=== PATIENT | male | born 1995 | race Two or more races ===

== ENCOUNTER 2020-03-15 11:02 | Outpatient (REF) | payer OTHER, SELFPAY | END 2020-03-15 11:03 | disposition home or self-care (01) | LOC: HO.LAB 11:02 | PROVIDERS: Visit Provider Internal Medicine | DX: Z20.828 Contact with and (suspected) exposure to other viral communicable diseases (principal) | CPT/HCPCS: C9803; U0003 ==

== ENCOUNTER 2020-04-09 07:45 | Outpatient (REF) | payer OTHER, SELFPAY | END 2020-04-09 07:46 | disposition home or self-care (01) | LOC: HO.LAB 07:45 | PROVIDERS: Visit Provider Internal Medicine | DX: Z20.822 Contact with and (suspected) exposure to COVID-19 (principal) | CPT/HCPCS: 36415; C9803; U0003 ==

== ENCOUNTER 2020-07-04 14:22 | Outpatient (REF) | payer OTHER, SELFPAY ==
[2020-07-04 15:36] LABS: COVID-19 Test Negative (Negative)
== END 2020-07-04 14:23 | disposition home or self-care (01) ==
LOC: HO.LAB 14:22
PROVIDERS: Visit Provider Internal Medicine
DX: Z20.822 Contact with and (suspected) exposure to COVID-19 (principal)
CPT/HCPCS: 36415; 87635; C9803

== ENCOUNTER 2020-08-05 13:59 | Outpatient (REF) | payer OTHER, SELFPAY ==
[2020-08-05 14:18] LABS: COVID-19 Test Negative (Negative)
== END 2020-08-05 14:00 | disposition home or self-care (01) ==
LOC: HO.LAB 13:59
PROVIDERS: Visit Provider Internal Medicine
DX: Z20.822 Contact with and (suspected) exposure to COVID-19 (principal)
CPT/HCPCS: 36415; 87635; C9803

== ENCOUNTER 2021-08-03 09:16 | Outpatient (REF) | payer OTHER, SELFPAY ==
[2021-08-03 10:04] LABS: COVID-19 Test Positive (Negative)
== END 2021-08-03 09:17 | disposition home or self-care (01) ==
LOC: HO.LAB 09:16
PROVIDERS: Visit Provider Internal Medicine
DX: Z20.822 Contact with and (suspected) exposure to COVID-19 (principal)
CPT/HCPCS: 87635; C9803

== ENCOUNTER 2021-08-12 15:24 | Outpatient (REF) | payer OTHER, SELFPAY ==
[2021-08-12 16:05] LABS: COVID-19 Test Negative (Negative)
== END 2021-08-12 15:25 | disposition home or self-care (01) ==
LOC: HO.LAB 15:24
PROVIDERS: Visit Provider Internal Medicine
DX: Z20.822 Contact with and (suspected) exposure to COVID-19 (principal)
CPT/HCPCS: 87635; C9803

== ENCOUNTER 2022-01-05 18:32 | Emergency (ER) | payer OTHER, SELFPAY ==
[2022-01-05 18:58] VITALS: BP 133/87; PULSE 82; RESP 18; TEMP 36.5; O2SAT 99; BMI 35.1
--- NOTE | 2022-01-05 22:54 | PC.NURSE ---
Pt. reports fevers at home - appx. 101.0F
[2022-01-05 22:55] VITALS: BP 138/92; PULSE 95; RESP 18; TEMP 37.2; O2SAT 100
--- NOTE | 2022-01-05 22:57 | PC.NURSE ---
Pt. also reporting decreased appetite, as well as numbness and tingling to entire left leg since onset of abscess
--- NOTE | 2022-01-05 23:07 | ED.SKABFB ---
HPI - Skin/Abscess/Foreign Bdy General Chief complaint: Skin/Abscess/Foreign Body Stated complaint: L Knee Abscess Time Seen by Provider: 01/05/22 22:54 Source: patient Mode of arrival: ambulatory Limitations: no limitations History of Present Illness HPI narrative: This is a 26-year-old male no significant medical history presenting to the emergency department with pain right below the left knee cap x4 days. Patient tells me that 2 days ago he started noting that there is fluid draining from the site, after he picked at the area. He tells me there is a small cyst. He tells me he went to urgent care because he is having pain when he touches that area and they told him to come into the emergency department because he had an abscess right below his knee. Patient tells me he is able to move his knee without difficulties, it is painful when he touches the area. Patient is not a diabetic. Patient reports he feels some numbness and tingling around the area intermittently however not at this time. Denies fevers, chills, chest pain, shortness of breath, nausea, vomiting, abdominal pain. Related Data Previous Rx's Medication Instructions Recorded cephalexin 500 mg tablet 500 mg PO Q6H 10 days #40 tabs 01/05/22 Allergies Allergy/AdvReac Type Severity Reaction Status Date / Time No Known Allergies Allergy Unverified 11/29/19 18:45 [No Known Allergies*] Review of Systems Review of Systems: Constitutional : No Weight loss, No Fever, No Chills, No Fatigue, No Malaise ENT/Mouth : No sore throat, No Rhinorrhea Eyes: No Eye Pain, No Swelling, No Redness Cardiovascular : No Chest Pain, No SOB, No Dyspnea on Exertion, No Orthopnea, No Edema, No Palpitations Respiratory : No Cough, No Sputum, No Wheezing Gastrointestinal : No Nausea, No Vomiting, No Diarrhea, No Constipation, No abdominal Pain, No Hematochezia, No Melena Genitourinary : No Dysuria, No Urinary Frequency, No Hematuria, Musculoskeletal : No joint pain, No Myalgias, No Joint Swelling Skin : No Skin Lesions, + rash Neuro : No Weakness, No Numbness, No Dizziness, No Headache Psych : No Anxiety/Panic, No Depression All other systems reviewed and are negative Yes all other systems are reviewed and are negative [facility] Past Medical History Attestation statement: The following information was validated with the patient. Source: old records reviewed and nursing notes reviewed Social History Social History Alcohol intake: never Patient Tobacco Use Status: Never used Tobacco Use of substances other than those prescribed or required for medical reasons: No Physical Exam Vital Signs: Vital Signs: Last Vital Signs Temp 98.9 F 01/05/22 22:55 Pulse 95 01/05/22 22:55 Resp 18 01/05/22 22:55 BP 138/92 H 01/05/22 22:55 Pulse Ox 100 01/05/22 22:55 O2 Del Method 01/05/22 22:55 BMI result Body Mass Index 35.1 Vital signs stable Appearance: Alert.? Oriented X3.? No acute distress.? Head: Normocephalic, atraumatic, no step-offs or deformities Eyes: Pupils equal, round and reactive to light.? CVS: Normal heart rate and rhythm.? Pulses normal.? Respiratory: No respiratory distress.? Breath sounds normal.? Abdomen: Soft and nontender.? Skin: Skin warm and dry.? Normal skin color.? Normal skin turgor.? Extremities: No lower extremity edema.? No calf ttp. 5/5 strength to bilateral upper and lower extremities 2+ dorsalis pedis, posterior tibialis, anterior tibialis pulses equal bilateral. There is a small area of mild erythema just below the left knee with no fluctuance, it does appear as though there may have been a small abscess that has already drained however no evident abscesses at this time. Bilateral knees with full range of motion without difficulties. Patient ambulating with steady gait, normal coordination. Neuro: Oriented X 3.? No motor deficit.? No sensory deficit. CN 2-12 intact Course Reevaluation(s) Reevaluation #1: CBC within normal limits. Chemistry with no acute electrolyte abnormalities requiring intervention. Knee xray pending. Again unlikely septic joint. No signs of abcess. Time: 23:42 Reevaluation #2: did a bedside ultrasound showing cobblestoning which is consistent with cellulitis. No signs of abscess formation. This time patient will be discharged home on Keflex. Now tells me that he was discharged home from Urgent Care on doxycycline which he has taken a few days of. No need for x-ray at this time, unlikely septic joint or osteomyelitis. Comfortable discharge home educated on worrisome signs and symptoms and when to return. Time: 23:54 MDM - Skin/Abscess/Foreign Bdy MDM Narrative Medical decision making narrative: 2300 26-year-old male presents with pain below the left knee and overlying skin redness, swelling. Did tells me this started as a small cyst which she popped 2 days ago. This has been going on for total of 5 days. Went to urgent care and was told to come in for evaluation. History and physical examination with slight erythema, warmth below the left knee consistent with cellulitis. Full range of motion to bilateral knees. Neurovascularly intact to bilateral lower extremities. Likely localized cellulitis, no signs of erysipelas, no signs of septic joint or osteomyelitis. Plan at this time is to obtain an x-ray. Medical Records Attestation: I reviewed the patient's medical records. Lab Data Attestation: I reviewed the patient's lab results. Result diagrams: 01/05/22 23:08 01/05/22 23:08 Labs: Lab Results 01/05/22 01/05/22 01/05/22 Range/Units 23:08 23:08 23:08 WBC 8.4 (4.8-10.8) X10*3/uL RBC 5.67 (4.60-5.80) X10*6/uL Hgb 16.9 (14.0-18.0) g/dl Hct 50.0 (42.0-52.0) % MCV 88.2 (80.0-98.0) fL MCH 29.8 (27.0-33.0) pg MCHC 33.8 (31.0-36.0) g/dl RDW 12.4 (11.0-16.0) % Plt Count 279 (160-400) X10*3/uL MPV 10.9 (9.4-12.4) fL Immature Gran % (Auto) 0.2 (0.0-0.4) % Neut % (Auto) 63.6 (45-73) % Lymph % (Auto) 27.2 (20-40) % [place] % (Auto) 7.4 (2-11) % Eos % (Auto) 1.0 (0-4) % Baso % (Auto) 0.6 (0-2) % Lymph # (Auto) 2.3 (1.2-4.9) X10*3/uL [place] # (Auto) 0.6 (0.1-1.2) X10*3/uL Eos # (Auto) 0.1 (0.0-0.4) X10*3/uL Baso # (Auto) 0.1 (0.0-0.2) X10*3/uL Abs Immat Gran (auto) 0.02 (0.00-0.03) X10*3/uL Absolute Neuts (auto) 5.4 (2.0-8.3) x10*3/uL Absolute Nucleated RBC 0.000 (0.0-0.012) X10*3/uL Nucleated RBC % (auto) 0.0 (0.0-0.2) /100WBC Sodium 142 (135-145) mmol/L Potassium 4.4 (3.3-5.1) mmol/L Chloride 103 (96-108) mmol/L Carbon Dioxide 26 (22-29) mmol/L Anion Gap 17 (12-20) BUN 14 (9-16) mg/dL Creatinine 0.90 (0.5-1.4) mg/dL Estim Creat Clear Calc 153.8 Estimated GFR > 60 Random Glucose 88 (60-115) mg/dL Lactic Acid 1.1 (0.5-2.0) mmol/L Calcium 10.3 H (8.4-10.2) mg/dL Total Bilirubin 0.8 (0.0-1.0) mg/dL AST 37 (5-37) U/L ALT 89 H (0-40) U/L Alkaline Phosphatase 90 (39-117) U/L Total Protein 8.5 H (6.5-8.0) g/dL Albumin 5.0 (3.5-5.0) g/dL Discharge Plan Discharge Clinical Impression: Cellulitis Patient Disposition: Home, Self-Care Instructions: Cellulitis (ED), Warm Compress or Soak (ED) Additional Instructions: Take your medications as prescribed. If you were prescribed antibiotics today, it is important that you take your medication to their entirety, do not skip any doses, do not finish them early. Follow-up with your primary care provider this week. Return to the emergency department with new or worsening symptoms. Worsening pain, swelling, inability to move me, fevers, chills, numbness or tingling Please do not going to any hot tubs, bathtubs, lakes, pickens, pulls are any areas with stagnant water. In case of emergency call 911 Prescriptions: New cephalexin 500 mg tablet 500 mg PO Q6H 10 Days Qty: 40 0RF Referrals: Physician,Unknown J [Primary Care Provider] - 2 days Stand Alone Forms: Work/School Release
[2022-01-05 23:14] LABS: MANUAL DIFF FLAG NO
[2022-01-05 23:15] LABS: Basophils Absolute Auto 0.1 X10*3/uL (0.0-0.2); Basophils Percent Auto 0.6 % (0-2); Eosinophils Absolute Auto 0.1 X10*3/uL (0.0-0.4); Hemoglobin 16.9 g/dl (14.0-18.0); Imm Gran Abs Auto 0.02 X10*3/uL (0.00-0.03); Imm Gran Pct Auto 0.2 % (0.0-0.4); Lymphocytes Absolute Auto 2.3 X10*3/uL (1.2-4.9); Lymphocytes Percent Auto 27.2 % (20-40); Mean Corpuscular HGB Conc 33.8 g/dl (31.0-36.0); Mean Corpuscular Hemoglobin 29.8 pg (27.0-33.0); Mean Corpuscular Volume 88.2 fL (80.0-98.0); Mean Platelet Volume 10.9 fL (9.4-12.4); Monocytes Absolute Auto 0.6 X10*3/uL (0.1-1.2); Monocytes Percent Auto 7.4 % (2-11); Neutrophils Absolute Auto 5.4 x10*3/uL (2.0-8.3); Neutrophils Percent Auto 63.6 % (45-73); Platelet Count 279 X10*3/uL (160-400); Red Blood Count 5.67 X10*6/uL (4.60-5.80); Red Cell Distribution Width 12.4 % (11.0-16.0); White Blood Count 8.4 X10*3/uL (4.8-10.8)
[2022-01-05 23:27] LABS: Lactic Acid 1.1 mmol/L (0.5-2.0)
[2022-01-05 23:40] LABS: Alanine Aminotransferase 89 U/L (0-40); Alkaline Phosphatase 90 U/L (39-117); Anion Gap 17 (12-20); Aspartate Amino Transferase 37 U/L (5-37); Bilirubin Total 0.8 mg/dL (0.0-1.0); Blood Urea Nitrogen 14 mg/dL (9-16); Calcium 10.3 mg/dL (8.4-10.2); Carbon Dioxide 26 mmol/L (22-29); Chloride 103 mmol/L (96-108); Creatinine Clr Calc Pharmacy 153.8; Estimated Glomerular Filt Rate > 60; Glucose Random 88 mg/dL (60-115); Potassium 4.4 mmol/L (3.3-5.1); Sodium 142 mmol/L (135-145); Total Protein 8.5 g/dL (6.5-8.0)
--- OUTSIDE RECORDS SUMMARY | 2022-01-06 | XMS_ITS ---
:1995 Author Support Name Relationship Address Phone Mario Reilly Unavailable [address] [place] [address] PROBLEMS Unknown Problems ALLERGIES No Information ENCOUNTERS Encounter Location Date Diagnosis [facility] [address] [place] [address] [address] [place], [place] [id number] [facility] [employer] [address] [place] [address] [address] [place], [place] [id number] IMMUNIZATIONS No Known Immunizations SOCIAL HISTORY Never Assessed REASON FOR REFERRAL FUNCTIONAL STATUS PLAN OF CARE VITAL SIGNS MEDICATIONS Unknown Medications PROCEDURES No Known procedures RESULTS No Results REASON FOR VISIT Insurance Providers [facility] Member Patient Patient Patient Patient Patient Subscriber Subscriber Subscriber Group Insurance Plan Plan Plan Plan ID Relationship Address Phone Name Date of ID Name Date of No Type Insurance Insurance Insurance Coverage to Subscriber Address Phone Name Dates [address] self Mario [id number] Safety Net [place] [address] Office [facility] Office [facility] Medical [phone] [facility] [phone] [place] self Mario [id number] Medicaid [id number] Medicaid [place] [address] [facility] [id number]
--- OUTSIDE RECORDS SUMMARY | 2022-01-06 | XMS_ITS | Encounter Summary ---
:1995 Author Care Team Providers Name Role Phone [facility] Provide r [phone] Reason for Visit Left knee pain pt here to clinic for left knee pain, re d spot, burning sensation, unable to bend for too long x 3 days Assessment and Plan Assessment Note Patient has a small abscess I advised i ncision and drainage and antibiotics. Patient refusing incision and drainage at this t j carlos, is very hesitant about lidocaine and needle. I told him that he would have to return in 72 hours if no improvement on the antibiotics and using warm compresses. P atient verbalizes understanding to this. 1. Abscess ? knee pain or injury: care instruction s ? skin abscess: care instructions 2. Cellulitis ? cellulitis: care instructions ? doxycycline hyclate 100 mg capsule Discussion Note: None recorded. Plan of Care Reminders Provider Appointments None recorded. ? ? Lab None recorded. ? ? Referral None recorded. ? ? Procedures None recorded. ? ? Surgeries None recorded. ? ? Imaging None recorded. ? ? Medications Name Start Date ? ? cyclobenzaprine 10 mg tablet ? TAKE 1 TABLET BY MOUTH TWICE DAILY N EEDED. DO NOT DRINK ALCOHOL OR DRIVE WHILE TAKING THIS MEDICATION diazepam 5 mg tablet ? TAKE 1 TABLET BY MOUTH 4 (FOUR) TIMES DAILY NEEDED FOR PAIN moderato doxycycline hyclate 100 mg capsule ? Take 1 capsule twice a day by oral route for 7 days. lisinopril 5 mg tablet ? TAKE 1 TABLET BY MOUTH ONCE DAILY ProAir HFA 90 mcg/actuation aerosol inhaler ? INHALE 2 PUFF BY MOUTH 4 (FOUR) TIMES D AILY NEEDED FOR WHEEZING. USE WITH spacer Notes: inhaler Medications Administered None recorded. Vitals Blood Pressure 144/92 mm[Hg] Results Lab Results None recorded. Allergies Code Code System Name Reaction Severity Onset NKDA ? ? ? Problems None recorded. Procedures None recorded. Vaccine List None recorded. Social History Tobacco Smoking Status Never Smoker Functional Status Unknown. Past Encounters 01/03/2022 Abscess; Cellulitis BRIJESH Traore: [phone], [place] [phone], Ph. History of Present Illness Note: <div>26-year-old male presents today with discomfort proximal to his left knee. Patient firstnoted a small bump there 2 to 3 days ago and states it is grown larger and more painful. Patient denies fever or chills. Patient denies history of similar. Patient has not tried any medication at home for the symptoms.</div> Review of Systems ? Comprehensive Adult Problem ROS Reported By: Patient Constitutional: Constitutional: no fever, no fatigue ENMT: ENMT: no ear pain, no sinus pressure, no congestion, no sore throat Cardiovascular: Cardiovascular: no chest den n Respiratory: Respiratory: no cough, no wh eezing, no chest tightness Gastrointestinal: GI: no nausea, no vomiting, no diarrhea Musculoskeletal: Musculoskeletal: limited mot ion Skin: Skin: pain, redness Neurological symptoms: Neuro: no headache, no dizzi ness Allergic/Immunologic: Allergy/Immunologic: no snee zing, no runny nose Physical Exam ? Notes: <div>General: awake, calm, c ooperative, No apparent distress
Skin: Left kruger: (see attacched picture ) proximal to knee with erythematous papule, +surrounding induration and point tenderness to palpation
Eyes: PERRLA, EOMI
ENT: mucosa moist
Neck: soft/supple, full range of motion
Musculoskeletal: L eft knee: able to flex/extend
Neurological: alert with no acute laterali zing deficit
Psychiatric: stable mood and affect</div>
--- OUTSIDE RECORDS SUMMARY | 2022-01-06 | XMS_ITS ---
:1995 Author Care Team Providers Name Role Phone [facility] Primary Care Provide r [phone] Allergies Code Code System Name Reaction Severity Status Onset NKDA ? Medications Name Status Start Date Stop Date ? ? acetaminophen 325 mg tablet Completed ? 12/13 TAKE 2 TABLETS BY MOUTH EVERY 4 HOURS A S NEEDED FOR MODERATE PAIN (LIMIT 4000MG OF TYLENOL/ACETAMINOPHEN PER DAY) Anucort-HC 25 mg suppository Completed ? PLACE [facility] SUPP[facility]ORY rectalemente two (2) times a day cetirizine 10 mg tablet Completed ? 01/04/20 TAKE 1 TABLET BY MOUTH ONCE DAILY cyclobenzaprine 10 mg tablet Active ? Not available TAKE 1 TABLET BY MOUTH TWICE DAILY N EEDED. DO NOT DRINK ALCOHOL OR DRIVE WHILE TAKING THIS MEDICATION cyclobenzaprine 5 mg tablet Completed ? 12/13 TAKE 1 TABLET BY MOUTH 3 (THREE) TIMES A DAY FOR 7 DAYS diazepam 5 mg tablet Active ? Not availab le TAKE 1 TABLET BY MOUTH 4 (FOUR) TIMES DAILY NEEDED FOR PAIN moderato doxycycline hyclate 100 mg capsule Active ? Not available Take 1 capsule twice a day by oral route for 7 days. fluticasone propionate 50 mcg/actuation nasal spray,suspension C ompleted ? 01/03/2022 SPRAY ONCE IN EACH NOSTRIL two (2) times a day hydrocortisone 2.5 % topical cream Completed ? 01/03/2022 APPLY TO THE AFFECTED AREA TOPICALLY 3 (THREE) TIMES A DAY ibuprofen 400 mg tablet Completed ? 01/04/20 TAKE 1 TABLET BY MOUTH THREE TIMES A DAY NEEDED FOR MILD SHERI N ibuprofen 600 mg tablet Completed ? 01/04/20 TAKE 1 TABLET BY MOUTH TWICE DAILY NEEDED FOR PAIN lidocaine 5 % topical patch Completed ? 12/13 APPLY 1 PATCH ON THE SKIN DAILY lisinopril 5 mg tablet Active ? Not avail able TAKE 1 TABLET BY MOUTH ONCE DAILY naproxen 500 mg tablet Completed ? 2 TAKE 1 TABLET BY MOUTH two (2) times a day FOR 5 DAYS prednisone 20 mg tablet Completed ? 01/04/20 22 TAKE 2 TABLETS BY MOUTH ONCE DAILY FOR 5 DAYS ProAir HFA 90 mcg/actuation aerosol inhaler Active ? Not available INHALE 2 PUFF BY MOUTH 4 (FOUR) TIMES D AILY NEEDED FOR WHEEZING. USE WITH spacer Notes: inhaler Problems None recorded. Procedures Date Name Performed by ? 03/11/2020 Electrocardiogram [facility] [address] [place], [place] [phone] (Work [address]) Results Lab Results Date Name Specimen Result Interpretation Description Value Range Status Address ? 03/11/2020 Electrocardiogram ? Rate and regular rhyth m ? ? [facility] Rhythm rate70 [place]: [address], [place] ? ? ? Qrs normal ? ? [facility] morphology Feedin [place]: [address], [place] ? ? ? FL Interval 166 ? ? [facility] [place]: [address], [place] ? ? ? QRS 90 ? ? [facility] Duration [place]: [address], [place] ? ? ? QT Interval 376 ? ? [facility] [place]: [address], [place] Past Encounters 01/03/2022 Abscess; Cellulitis BRIJESH Traore: [address], [place] [phone], Ph. Social History Tobacco Smoking Status Never Smoker Vaccine List None recorded. Plan of Care Reminders Provider Appointments None recorded. ? ? Lab None recorded. ? ? Referral None recorded. ? ? Procedures None recorded. ? ? Surgeries None recorded. ? ? Imaging None recorded. ? ? Vitals 01/03/2022 09:10AM Established Patient Blood Pressure 144/92 mm[Hg] 03/11/2020 02:45PM New Patient Blood Pressure 134/92 mm[Hg]
[2022-01-06] MEDS: cephALEXin 500 MG CAPSULE PO (00:15)
--- NOTE | 2022-01-06 00:16 | PC.NURSE ---
Pt V/S are stable, pt medication was given as order by the provider.
== END 2022-01-06 00:22 | disposition home or self-care (01) ==
PROVIDERS: Physician Assistant; Emergency Provider Internal Medicine
DX: L03.116 Cellulitis of left lower limb (principal); Z79.899 Other long term (current) drug therapy
CPT/HCPCS: 36415; 80053; 83605; 85025; 87040; 99283; 99284